=== PATIENT | female | born 1995 | race African-American/Black ===

== ENCOUNTER 2016-11-04 12:49 | Emergency (ER) | payer SELFPAY | END 2016-11-04 13:14 | disposition home or self-care (01) | LOC: BURERS 12:49 | DX: R55 Syncope and collapse (principal) | CPT/HCPCS: 93005 ==

== ENCOUNTER 2016-11-05 02:44 | Emergency (ER) | payer SELFPAY ==
[2016-11-05] MEDS ORDERED: ALPRAZolam 0.5 MG TAB ONE (03:01)
== END 2016-11-05 03:17 | disposition home or self-care (01) ==
LOC: BURERS 02:44
DX: F41.9 Anxiety disorder, unspecified (principal)
CPT/HCPCS: 99284

== ENCOUNTER 2016-12-15 17:42 | Emergency (ER) | payer SELFPAY | END 2016-12-15 19:09 | disposition home or self-care (01) | LOC: BURERS 17:42 | DX: F41.9 Anxiety disorder, unspecified (principal) | CPT/HCPCS: 84443; 99283 ==

== ENCOUNTER 2017-01-05 14:18 | Emergency (ER) | payer SELFPAY ==
[2017-01-05] MEDS ORDERED: ALPRAZolam 0.5 MG TAB ONE (14:36)
== END 2017-01-05 15:20 | disposition home or self-care (01) ==
LOC: BURERS 14:18
DX: F41.0 Panic disorder [episodic paroxysmal anxiety] (principal)
CPT/HCPCS: 99283

== ENCOUNTER 2017-01-20 16:25 | Emergency (ER) | payer SELFPAY | END 2017-01-20 17:05 | disposition home or self-care (01) | LOC: BURERS 16:25 | DX: H61.21 Impacted cerumen, right ear (principal) | CPT/HCPCS: 99282 ==

== ENCOUNTER 2017-03-18 19:22 | Emergency (ER) | payer SELFPAY | END 2017-03-18 19:44 | disposition home or self-care (01) | LOC: BURERS 19:22 | DX: R20.9 Unspecified disturbances of skin sensation (principal); F41.9 Anxiety disorder, unspecified; Z79.899 Other long term (current) drug therapy | CPT/HCPCS: 99283 ==

== ENCOUNTER 2018-11-04 19:09 | Emergency (ER) | payer MEDICAID, SELFPAY | END 2018-11-04 19:43 | disposition home or self-care (01) | LOC: BURERS 19:09 | DX: J30.9 Allergic rhinitis, unspecified (principal); H65.93 Unspecified nonsuppurative otitis media, bilateral; F41.9 Anxiety disorder, unspecified; F32.9 Major depressive disorder, single episode, unspecified | CPT/HCPCS: 99283 ==

== ENCOUNTER 2021-11-22 16:44 | Outpatient (CLI) | payer OTHER | END 2021-11-22 16:45 | disposition home or self-care (01) | LOC: BUREKG 16:44 | PROVIDERS: ATTEND Physician Assistant | DX: F41.8 Other specified anxiety disorders (principal) | CPT/HCPCS: 93005; 93010 ==